=== PATIENT | female | born 1935 | race Caucasian/White ===

== ENCOUNTER 2021-02-15 10:19 | Observation (INO) | payer MEDICARE ==
[2021-02-15 10:54] LABS: #Eosinphils 0.1 10x3/uL (0.0-0.5); #Monocytes 0.6 10x3/uL (0.0-1.1); #Neutrophils 7.4 10x3/uL (1.5-8.4); %Basophils 0.2 % (0.0-2.0); %Eosinophils 0.9 % (0.0-6.0); %Lymphocytes 17.7 % (18.0-47.0); %Monocytes 5.6 % (0.0-10.0); %Neutrophils 75.2 % (40.0-75.0); Hemoglobin 12.7 g/dL (12.0-15.5); Mean Corpuscular HGB CONC 32.6 g/dL (32.0-36.0); Mean Corpuscular Hemoglobin 28.9 pg (27.0-33.0); Mean Corpuscular Volume 88.6 fl (81.6-98.3); Mean Platelet Volume 10.6 fl (7.4-10.4); Platelet Count 176 10x3/uL (150-450); RBC Distribution Width 13.6 % (11.5-14.5); White Blood Cell (WBC) Count 9.8 10x3/uL (3.5-10.5)
[2021-02-15 11:18] LABS: ALT (SGPT) 13 U/L (8-55); AST (SGOT) 21 U/L (5-34); Albumin 3.8 g/dL (3.4-4.8); Alkaline Phosphatase 76 U/L (40-110); Anion Gap 18 mmol/L (10-20); BUN (Urea Nitrogen) 14 mg/dL (9.8-20.1); Bilirubin, Total 0.6 mg/dL (0.2-1.2); Calc. Creatinine Clearance 0 mL/min (70-130); Calcium 9.5 mg/dL (7.8-10.44); Carbon Dioxide 20 mmol/L (23-31); Chloride 107 mmol/L (98-107); Globulin 3.1 g/dL (2.4-3.5); Glucose 172 mg/dL (83-110); Potassium 4.4 mmol/L (3.5-5.1); Protein, Total 6.9 g/dL (5.8-8.1); Sodium 141 mmol/L (136-145)
[2021-02-15 11:45] LABS: Bilirubin Neg (Negative); Blood, Urine Negative (Negative); Glucose, Urine (Dipstick) Normal (Negative); Ketone, Urine Negative (Negative); Leukocyte Negative (Negative); Nitrite Positive (Negative); Protein, Urine (Dipstick) Negative (Neg-Trace); Urobilinogen Normal mg/dL (Less than 2)
[2021-02-15 11:46] LABS: Clarity Cloudy (Clear)
[2021-02-15 11:57] LABS: Bacteria/HPF 4+ HPF (None Seen); RBC/HPF 0-3 HPF (0-3); Squamous Epithelial 0-3 HPF (0-3); WBC/HPF 0-3 HPF (0-3)
[2021-02-15] MEDS ORDERED: Acetaminophen 325 MG TAB PO PRN (13:18)
[2021-02-15] MEDS ORDERED: Ondansetron ODT 4 MG TAB PO PRN (13:18)
[2021-02-15] MEDS ORDERED: cefTRIAXone\\ROCEPHIN 2 GM VIAL ONE (13:19)
[2021-02-15] MEDS ORDERED: cefTRIAXone\\ROCEPHIN 2 GM in Sodium Chloride 0.9% 100 ML IVPB SCH (14:00)
[2021-02-15 14:02] VITALS: BMI 25.0
[2021-02-15] MEDS: Sodium Chloride 0.9% 1,000 ML IV SCH (14:11)
[2021-02-15 14:16] LABS: Lactic Acid 1.7 mmol/L (0.5-2.2)
[2021-02-15 14:39] LABS: SARS-CoV-2 NAA Rapid Test Not Detected (NotDetected)
[2021-02-15 18:00] LABS: Lactic Acid 2.2 mmol/L (0.5-2.2)
[2021-02-15 18:04] LABS: Troponin I 0.151 ng/mL (< 0.028)
[2021-02-15 20:50] LABS: Hemoglobin A1c 6.4 % (4.0-6.0)
[2021-02-16] MEDS: Sodium Chloride 0.9% 1,000 ML IV SCH (03:13)
[2021-02-16 05:00] LABS: #Eosinphils 0.1 10x3/uL (0.0-0.5); #Monocytes 0.6 10x3/uL (0.0-1.1); #Neutrophils 4.3 10x3/uL (1.5-8.4); %Basophils 0.3 % (0.0-2.0); %Eosinophils 1.7 % (0.0-6.0); %Lymphocytes 27.4 % (18.0-47.0); %Neutrophils 62.3 % (40.0-75.0); Hemoglobin 11.6 g/dL (12.0-15.5); Mean Corpuscular HGB CONC 32.1 g/dL (32.0-36.0); Mean Corpuscular Hemoglobin 29.3 pg (27.0-33.0); Mean Corpuscular Volume 91.2 fl (81.6-98.3); Platelet Count 141 10x3/uL (150-450); RBC Distribution Width 13.5 % (11.5-14.5); Red Blood Cell (RBC) Count 3.96 10x6/uL (3.90-5.03); White Blood Cell (WBC) Count 6.9 10x3/uL (3.5-10.5)
[2021-02-16 05:12] LABS: Lactic Acid 1.3 mmol/L (0.5-2.2)
[2021-02-16 05:15] LABS: Anion Gap 12 mmol/L (10-20); BUN (Urea Nitrogen) 14 mg/dL (9.8-20.1); Calc. Creatinine Clearance 63 mL/min (70-130); Carbon Dioxide 24 mmol/L (23-31); Chloride 110 mmol/L (98-107); Glucose 103 mg/dL (83-110); Potassium 4.4 mmol/L (3.5-5.1); Sodium 142 mmol/L (136-145)
[2021-02-16 08:32] LABS: CKMB 4.5 ng/mL (0-6.6)
[2021-02-16] MEDS ORDERED: Enoxaparin Sodium 30 MG/0.3 ML SYRINGE SC SCH (09:00)
[2021-02-16] MEDS ORDERED: cefTRIAXone\\ROCEPHIN 2 GM in Sodium Chloride 0.9% 100 ML IVPB SCH (11:30)
[2021-02-16 12:47] VITALS: TEMP 97.7
[2021-02-16 13:13] VITALS: BP 139/96
== END 2021-02-16 15:09 | disposition home or self-care (01) ==
LOC: CSHERS 10:19 → CSHTELE 12:44
PROVIDERS: ADMIT Internal Medicine; ATTEND Internal Medicine
DX: N39.0 Urinary tract infection, site not specified (principal); B96.20 Unspecified Escherichia coli [E. coli] as the cause of diseases classified elsewhere; E87.2 Acidosis; E86.0 Dehydration; F41.9 Anxiety disorder, unspecified; Z86.73 Personal history of transient ischemic attack (TIA), and cerebral infarction without residual deficits; E11.9 Type 2 diabetes mellitus without complications; Z20.822 Contact with and (suspected) exposure to COVID-19
CPT/HCPCS: 0240U; 51710; 70450; 71045; 80048; 82140; 82553; 83036; 83605 ×2; 84145; 84484 ×3; 85025; 87040; 87077; 87086; 87149 ×2; 87186; 93005 ×2; 96372; 96374; 96376; 97116; 97139 ×3; 99285; G0378 ×3; 36415; 80053; 81003; 81015; 84443; 93010; J0696; J1650; J3370; J3490; J7050